=== PATIENT | male | born 1965 | race Hispanic/Latino ===

== ENCOUNTER → 2020-03-24 | Outpatient (CLI) | payer SELFPAY ==
--- NOTE | 2020-03-24 10:10 | NUR ---
[facility]SS COMPLETED PENETRATION WITH THIN LIQUID VIA SPOON. RECOMMEND MECHANICAL SOFT/CHOPPED, HONEY THICK LIQUID. MORTGAGE PROTECTION SPECIALIST REVIEWED RESULTS AND RECOMMENDATIONS WITH Pt AND OVER THE PHONE. MORTGAGE PROTECTION SPECIALIST EDUCATED Pt ON RISKS AND CONSEQUENCES OF ASPIRATION. MORTGAGE PROTECTION SPECIALIST ALSO RECOMMENDED SPEECH THERAPY 3-5X WEEK TO ADDRESS SWALLOWING GOALS AND GI CONSULT (CURRENTLY ON PEG TUBE FEEDING). ALL QUESTIONS WERE ANSWERED AT THIS TIME. Addendum: 03/24/[address] ADRIÁN GRIMES Amended: Links added.
== END | disposition home or self-care (01) ==
LOC: RAH 09:42
PROVIDERS: ATTEND Internal Medicine Gastroenterology
DX: R13.12 Dysphagia, oropharyngeal phase (principal); R63.3 Feeding difficulties
CPT/HCPCS: 74230; 92611